=== PATIENT | female | born 1965 | race Caucasian/White ===

== ENCOUNTER → 2018-01-27 14:25 | Outpatient (CLI) | payer OTHER, SELFPAY ==
--- NOTE | 2018-01-27 14:31 | CT_ITS ---
STUDY: CT ABDOMEN AND PELVIS WITHOUT CONTRAST REASON FOR EXAM: Female, 53 years old. Hematuria x2 weeks. Left KS. RADIATION DOSAGE (If Supplied By Facility): CTDIvol = ( 14.00 ) mGy, DLP = ( 671.67 ) mGycm TECHNIQUE: Transaxial images were obtained from the dome of the diaphragm to the symphysis pubis without oral contrast, and without intravenous contrast. Sagittal and coronal images were reconstructed. Individualized dose optimization techniques were used for this CT. COMPARISON: None available. FINDINGS: CT abdomen without IV contrast. The visualized lung bases show no finding of active focal pulmonary consolidation with air bronchograms or pleural effusion with minimal groundglass and thin linear interstitial markings are noted lingula suggesting minimal subsegmental atelectasis/scarring. Visualized lower heart size appears within normal limits. Normal liver. Small size contracted appearing gallbladder noted. No extrahepatic biliary ductal dilatation identified. Visualized portal vein does not appear grossly dilated. Normal spleen. Normal pancreas. Normal bilateral adrenal glands. Right kidney shows mid collecting system rounds the margin of high attenuation calculus approximately 0.34 cm in diameter, nonobstructive appearing. Nonobstructive left renal mid collecting system calculus is approximately 0.59 x 0.53 cm posteriorly. In addition, mild hydronephrosis and hydroureter is seen with left mid to distal ureteral stranding and distal ureter calculus or calculi, measuring approximately 0.72 x 0.56 cm image #[id number] axials. Normal visualized partially collapsed stomach. Normal small intestine. Normal colon. The appendix is visualized and appears normal without thickening. Normal abdominal aorta. Normal inferior vena cava. Normal retroperitoneum. Normal urinary bladder, moderately distended without large gross focal bulky lesion seen. Uterus and ovaries appear grossly within normal limits. No ventral/inguinal bowel herniation noted. Normal abdominal wall. Abnormal anterior paramedian pelvic subcutaneous tissues show varices connecting the common femoral veins bilaterally. Nonacute osseous structures. CT/Abdomen/Pelvis without Cont IMPRESSION: Mild left hydronephrosis and left hydroureter is seen with mid to distal ureteral stranding and distal ureter calculus or calculi approximately 0.72 x 0.56 cm. Bilateral nonobstructive nephrolithiasis as described. Limitations above. Electronically Signed: Yifan Pink, at 15:11 EDT Tel , Service support ,
== END ==
PROVIDERS: Family Provider Family Medicine; PCP Family Medicine; Visit Provider Family Medicine
DX: R31.9 Hematuria, unspecified (principal)
CPT/HCPCS: 74176

== ENCOUNTER → 2018-02-18 14:50 | Outpatient (CLI) | payer OTHER, SELFPAY ==
--- NOTE | 2018-02-18 14:53 | EKG12_ITS ---
Test Reason : PREOP Blood Pressure : / mmHG Vent. Rate : 072 BPM Atrial Rate : 072 BPM P-R Int : 160 ms QRS Dur : 084 ms QT Int : 390 ms P-R-T Axes : 069 072 054 degrees QTc Int : 427 ms Normal sinus rhythm Normal ECG When compared with ECG of 29-SEP-2001 11:05, No significant change was found Confirmed by JUAN RAMON MINAYA ([id number]), tape editor NIDHI COMBS ([id number]) on 02/18/2018 3:50:59 PM Referred By: STONEY Confirmed By:JUAN RAMON MINAYA
== END ==
PROVIDERS: Family Provider Family Medicine; PCP Family Medicine; Visit Provider Urology
DX: Z01.812 Encounter for preprocedural laboratory examination (principal)
CPT/HCPCS: 93005

== ENCOUNTER → 2018-02-19 11:23 | Outpatient (CLI) | payer OTHER, SELFPAY ==
--- NOTE | 2018-02-19 11:25 | RAD_ITS ---
STUDY: X-RAY - ABDOMEN/PELVIS REASON FOR EXAM: Female, 53 years old. History of kidney stones. TECHNIQUE: Two AP supine views of the abdomen and pelvis. COMPARISON: None. FINDINGS: Normal visualized lung bases. There is an abundance of fecal material throughout the colon. There is a 3 mm calculus overlying the lower pole consistent with the right kidney. Punctate calcifications are seen in the left kidney more prominent in the midportion. Normal soft tissue structures. Normal visualized osseous structures. RAD/Abdomen Single View IMPRESSION: Small bilateral intrarenal calculi. Electronically Signed: Hussain Jimenez MD at 12:39 EDT Tel [phone], Service support ,
== END ==
PROVIDERS: Family Provider Family Medicine; PCP Family Medicine; Visit Provider Urology
DX: N20.0 Calculus of kidney (principal)
CPT/HCPCS: 74018

== ENCOUNTER → 2018-02-19 18:57 | Outpatient (CLI) | payer OTHER, SELFPAY ==
[2018-03-02 20:07] LABS: Ca Oxalate, Dihydrate 30 % (.); Ca Oxalate, Monohydrate 55 % (.); Calcium Phosphate 15 % (.)
== END ==
PROVIDERS: Family Provider Family Medicine; PCP Family Medicine; Visit Provider Urology
DX: N20.0 Calculus of kidney (principal)
CPT/HCPCS: 82360

== ENCOUNTER → 2019-08-17 14:15 | Outpatient (CLI) | payer OTHER, SELFPAY ==
[2019-08-20 16:06] LABS: HPV Reflexed? NOT INDICATED
== END ==
PROVIDERS: Family Provider Family Medicine; PCP Family Medicine; Referring Provider Nurse Practitioner Adult Health; Visit Provider Nurse Practitioner Adult Health
DX: Z01.419 Encounter for gynecological examination (general) (routine) without abnormal findings (principal); N76.0 Acute vaginitis
CPT/HCPCS: 87081; 88175; G0145

== ENCOUNTER → 2020-11-10 12:10 | Outpatient (CLI) | payer OTHER, SELFPAY | PROVIDERS: PCP Family Medicine; Visit Provider Family Medicine | DX: Z00.00 Encounter for general adult medical examination without abnormal findings (principal) ==

== ENCOUNTER → 2023-03-25 | Outpatient (CLI) | payer BC, SELFPAY ==
[2023-03-25 10:13] LABS: Hematocrit 43.4 % (37-47); Hemoglobin 14.5 g/dL (12.0-15.0); Mean Corp Hgb Conc 33.4 g/dL (32-36); Mean Corpuscular Hgb 32.4 pg (27.0-32.0); Mean Corpuscular Volume 97.1 fL (81-99); Platelet Count 197 K/mm3 (150-450); RBC Distribution Width CV 13.9 % (11.6-14.6); RBC Distribution Width SD 49.6 fl (35.1-43.9); Red Blood Count 4.47 M/mm3 (4.2-5.4); White Blood Count 6.4 K/mm3 (4.4-11.0)
[2023-03-25 11:21] LABS: Anion Gap 6 (5-15); BUN 14 mg/dL (7-18); BUN/Creat Ratio 16.1 RATIO (10-20); Chloride 108 mmol/L (98-107); Cholesterol 223 mg/dL (200); Creatinine, Serum 0.87 mg/dL (0.55-1.02); EST Glomerular Filtration Rate 72 mL/min (>60); Est Glom Filt Rate - Afr Amer 87 mL/min (>60); Glucose 157 mg/dL (74-106); High Density Lipoprotein 37 mg/dL; Magnesium 2.4 mg/dL (1.6-2.6); Sodium Level 141 mmol/L (136-145); Thyroid Stim Hormone (TSH) 1.61 uIU/mL (0.358-3.74); Triglycerides 156 mg/dL; Very Low Density Lipoprotein 31 mg/dL (5-40)
== END | disposition home or self-care (01) ==
LOC: MFPLAB 09:26
PROVIDERS: PCP Family Medicine; Visit Provider Family Medicine
DX: G25.0 Essential tremor (principal); Z13.1 Encounter for screening for diabetes mellitus; Z13.220 Encounter for screening for lipoid disorders; Z13.29 Encounter for screening for other suspected endocrine disorder
CPT/HCPCS: 36415; 80048; 80061; 83735; 84443; 85027

== ENCOUNTER → 2023-07-09 | Outpatient (CLI) | payer BC, SELFPAY ==
[2023-07-09 17:53] LABS: International Normalized Ratio 1.5
== END | disposition home or self-care (01) ==
LOC: MFPLAB 16:57
PROVIDERS: PCP Family Medicine; Visit Provider Family Medicine
DX: I82.409 Acute embolism and thrombosis of unspecified deep veins of unspecified lower extremity (principal)
CPT/HCPCS: 36415; 85610

== ENCOUNTER → 2025-01-10 | Outpatient (CLI) | payer OTHER, SELFPAY ==
[2025-01-10 08:14] LABS: Mucous, Urine 0 SEEN /hpf (<or=2+)
[2025-01-10 10:51] LABS: Color, Urine Yellow (Yellow); Glucose, Dipstick 250 mg/dl (Normal); Ketone-Dipstick Negative (Negative); Leukocyte Esterase-Dipstick 25 /ul (Negative); Nitrite-Dipstick Negative (Negative); Occult Blood-Urine 10 /ul (Negative); Protein-Dipstick 15 mg/dl (Negative); Urine Bilirubin Dipstick Negative (Negative); Urine Clarity Clear (Clear); Urine Urobilinogen Normal (Normal)
[2025-01-10 11:23] LABS: Squamous Epithelial Cells - UA 5-10 SEEN /hpf (5-10)
[2025-01-10 11:25] LABS: Bacteria 3+ /hpf (None Seen); Red Blood Cells-Urine 0-5 SEEN /hpf (0-5); White Blood Cells 5-10 SEEN /hpf (0-5)
[2025-01-10 11:26] LABS: Hyaline Cast 0-5 SEEN /lpf (0-5)
[2025-01-10 11:37] LABS: Microalbumin,Random Urine < 12.0 mg/L (NO RANGE EST.); Microalbumin:Creatinine Ratio UNABLE TO CALCULATE mg/g CRE
[2025-01-10 12:16] LABS: ALB/GLOB Ratio 1.4 RATIO (0.9-2.4); AST(SGOT) 25 U/L (<=31); Alanine Aminotransfer ALT/SGPT 14 U/L (<=34); Albumin, Serum 4.2 g/dL (3.5-5.0); Alkaline Phosphatase 93 U/L (35-104); Anion Gap 11 (5-15); BUN 16 mg/dL (4-19); BUN/Creat Ratio 19.9 RATIO (10-20); Calcium,Total 9.5 mg/dL (7.6-11.0); Carbon Dioxide 27.1 mmol/L (21.0-32.0); Chloride 99 mmol/L (98-108); Creatinine, Serum 0.79 mg/dL (0.70-1.20); EST Glomerular Filtration Rate 87 (>60); Glucose 252 mg/dL (70-99); Potassium 4.1 mmol/L (3.3-5.1); Protein, Total 7.2 g/dL (5.9-8.4); Sodium Level 137 mmol/L (133-145)
[2025-01-10 12:52] LABS: Cholesterol 240 mg/dL (<=200); High Density Lipoprotein 40 mg/dL; Low Density Lipoprotein Calc. 139 mg/dL; Triglycerides 301 mg/dL; Very Low Density Lipoprotein 60 mg/dL (5-40); Vitamin D,25 Hydroxy 20.9 ng/mL (30-100); cholesterol:hdl ratio screen 5.94
== END | disposition home or self-care (01) ==
LOC: MFPLAB 08:09
PROVIDERS: PCP Family Medicine; Visit Provider Family Medicine
DX: I10 Essential (primary) hypertension (principal); Z13.29 Encounter for screening for other suspected endocrine disorder
CPT/HCPCS: 36415; 80053; 80061; 81001; 82043; 82306; 82570; 84443

== ENCOUNTER → 2025-09-13 | Outpatient (CLI) | payer OTHER, SELFPAY ==
--- OUTSIDE RECORDS SUMMARY | 2025-09-13 17:57 | XMS RPT_ITS | CCD ---
Author Organization [facility] Inform ion Partnership [facility] Care Team Providers Care Electronics Instructor Name Role Phone Tomy Heller Attending Unavailable Tomy Heller Primary Care Unavailable Pina BARRIENTOS, Dr. Huitron Primary Care Provider Dr. Tomy Heller MD Attending Provider Problems Problem Classification Problem Date Documented Da te Episodic/Chronic Essential hypertension (1 source) Essential (primary) hypertension; Translations: [Essential (primary) hypertension] Onset: 01-20-2025 Chronic Results Test Name Value Interpretation Reference Range Facility Albumin DL <= 20 mg/L (U) [M ass/Vol]Ordered By: Tomy Heller on 01-10-2025 Urine Random Microalbumin < 12.0 mg/L NO RANGE EST. [facility] Anion gap in Serum or Plasma Ordered By: Tomy Heller on 01-10-2025 Anion gap [Moles/Vol] 11 mmol/L -[address] [facility] BUN/creatinine ratioOrdered By: Tomy Heller on 01-10-2025 Urea nitrogen/Creatinine [Mass ratio] 19.9 mg/mg 08-22 [facility] Bilirubin Test strip Ql (U)O rdered By: Tomy Heller on 01-10-2025 Bilirubin Ql (U) Negative Negative [facility] Bilirubin, totalOrdered By: Tomy Heller on 01-10-2025 Bilirubin [Mass/Vol] 0.60 mg/dL 0.00-1.30 [facility] Calculated very low density lipoprotein (VLDL) cholesterol measurementOrdered By: Tomy Heller on 01-10-2025 VLDL Cholesterol 60 mg/dL High 5-40 [facility] Carbon dioxide, total [Moles /volume] in Central venous bloodOrdered By: Tomy Heller on 03-10-2025 CO2 [Moles/Vol] 27.1 mmol/L 21.0-32.0 [facility] Chloride assayOrdered By: Shannan manolotomásher Heller on 01-10-2025 Chloride [Moles/Vol] 99 mmol/L 98-108 [facility] Comprehensive Metabolic Prof ilon 01-10-2025 Albumin [Mass/Vol] 4.2 g/dL Normal 3.5-5.0 [facility] Comment on above: Order Comment: Order Date: 01/04/25 Order Info: [id number] - CMP Order Date: 07/07/24 Order Info: [id number] - LIPID Order Info: [id number] - TSH Performed By: #### L 500.4050, [id number] #### [facility] [address] [place], [place], [address] Albumin/Globulin [Mass ratio] 1.4 {ratio} Normal 0.9-2.4 [facility] Comment on above: Order Comment: Order Date: 01/04/25 Order Info: [id number] - CMP Order Date: 07/07/24 Order Info: [id number] - LIPID Order Info: [id number] - TSH Performed By: #### L 500.4050, [id number] #### [facility] [address] [place], [place], [address] ALK PHOS 93 U/L Normal 35-104 [facility] Comment on above: Order Comment: Order Date: 01/04/25 Order Info: [id number] - CMP Order Date: 07/07/24 Order Info: [id number] - LIPID Order Info: [id number] - TSH Performed By: #### L 500.4050, [id number] #### [facility] [address] [place], [address] ALT [Catalytic activity/Vol] 14 U/L Normal <=34 [facility] Comment on above: Order Comment: Order Date: 01/04/25 Order Info: 0786-1 - CMP Order Date: 07/07/24 Order Info: [id number] - LIPID Order Info: 301-3 - TSH Performed By: #### L 500.4050, [id number] #### [facility] [address] [place], [address] AST [Catalytic activity/Vol] 25 U/L Normal <=31 [facility] Comment on above: Order Comment: Order Date: 01/04/25 Order Info: 07-1 - CMP Order Date: 07/07/24 Order Info: [id number] - LIPID Order Info: [id number] - TSH Performed By: #### L [id number], [id number] #### [facility] [address] [place], [address] Bilirubin [Mass/Vol] 0.60 mg/dL Normal 0.00-1.30 [facility] Comment on above: Order Comment: Order Date: 01/04/25 Order Info: [id number]- - CMP Order Date: 07/07/24 Order Info: [id number] - LIPID Order Info: 3 - TSH Performed By: #### L 500.4050, [id number] #### [facility] [address] [place], [place], [id number] BUN/CRE 19.9 RATIO Normal 10-20 [facility] Comment on above: Order Comment: Order Date: 01/04/25 Order Info: [id number]- - CMP Order Date: 07/07/24 Order Info: [id number] - LIPID Order Info: [id number] - TSH Performed By: #### L 500.4050, [id number] #### [facility] [address] [place], [address] Calcium [Mass/Vol] 9.5 mg/dL Normal 7.6-11.0 [facility] Comment on above: Order Comment: Order Date: 01/04/25 Order Info: 0786-1 - CMP Order Date: 07/07/24 Order Info: [id number] - LIPID Order Info: [id number] - TSH Performed By: #### L 500.4050, [id number] #### [facility] [address] [place], [address] Chloride [Moles/Vol] 99 mmol/L Normal 98-108 [facility] Comment on above: Order Comment: Order Date: 01/04/25 Order Info: 0786-1 - CMP Order Date: 07/07/24 Order Info: [id number] - LIPID Order Info: [id number] - TSH Performed By: #### L 500.4050, [id number] #### [facility] [address] [place], [address] CO2 [Moles/Vol] 27.1 mmol/L Normal 21.0-32.0 [facility] Comment on above: Order Comment: Order Date: 01/04/25 Order Info: 07-1 - CMP Order Date: 07/07/24 Order Info: [id number] - LIPID Order Info: [id number] - TSH Performed By: #### L [id number], [id number] #### [facility] [address] [place], [address] Creatinine [Mass/Vol] 0.79 mg/dL Normal 0.70-1.[address] [facility] Comment on above: Order Comment: Order Date: 01/04/25 Order Info: 0786-1 - CMP Order Date: 07/07/24 Order Info: [id number] - LIPID Order Info: [id number] - TSH Performed By: #### L 500.4050, [id number] #### [facility] [address] [place], [address] GAP 11 Normal 5-15 [facility] Comment on above: Order Comment: Order Date: 01/04/25 Order Info: 0786-1 - CMP Order Date: 07/07/24 Order Info: [id number] - LIPID Order Info: [id number] - TSH Performed By: #### L [id number], [id number] #### [facility] [address] [place], [address] GFR/1.73 sq M.predicted among non-blacks MDRD (S/P/Bld) [Vol rate/Area] 87 mL/min/{1.73_m2} Normal >60 [facility] Comment on above: Order Comment: Order Date: 01/04/25 Order Info: 0786-1 - CMP Order Date: 07/07/24 Order Info: [id number] - LIPID Order Info: [id number] - TSH Result Comment: mL/m in/1.73m2 CKD-EPI Creatinine Equation (2020) Performed By: #### L [id number], [id number] #### [facility] [address] [place], [place], [id number] Globulin (S) [Mass/Vol] 3.0 g/dL Normal 2.2-4.2 [facility] Comment on above: Order Comment: Order Date: 01/04/25 Order Info: 07- - CMP Order Date: 07/07/24 Order Info: [id number] - LIPID Order Info: [id number] - TSH Performed By: #### L 500.4050, [id number] #### [facility] [address] [place], [place], [id number] Glucose [Mass/Vol] 252 mg/dL High 70-99 [facility] Comment on above: Order Comment: Order Date: 01/04/25 Order Info: 0786-1 - CMP Order Date: 07/07/24 Order Info: [id number] - LIPID Order Info: [id number] - TSH Performed By: #### L 500.4050, [id number] #### [facility] [address] [place], [address] Potassium [Moles/Vol] 4.1 mmol/L Normal 3.3-5.[address] [facility] Comment on above: Order Comment: Order Date: 01/04/25 Order Info: 0786-1 - CMP Order Date: 07/07/24 Order Info: [id number] - LIPID Order Info: 3 - TSH Performed By: #### L 500.4050, [id number] #### [facility] [address] [place], [place], [address] Sodium [Moles/Vol] 137 mmol/L Normal 133-145 [facility] Comment on above: Order Comment: Order Date: 01/04/25 Order Info: 0786-1 - CMP Order Date: 07/07/24 Order Info: [id number] - LIPID Order Info: [id number] - TSH Performed By: #### L 500.4050, [id number] #### [facility] [address] [place], [address] T PROT 7.2 g/dL Normal 5.9-8.4 [facility] Comment on above: Order Comment: Order Date: 01/04/25 Order Info: 0786-1 - CMP Order Date: 07/07/24 Order Info: [id number] - LIPID Order Info: [id number] - TSH Performed By: #### L 500.4050, [id number] #### [facility] [address] [place], [address] Urea nitrogen [Mass/Vol] 16 mg/dL Normal 4-19 [facility] Comment on above: Order Comment: Order Date: 01/04/25 Order Info: 0786-1 - CMP Order Date: 07/07/24 Order Info: [id number] - LIPID Order Info: [id number] - TSH Performed By: #### L [id number], [id number] #### [facility] [address] [place], [address] Creatinine Unsp time (U) [Ma ss/Vol]Ordered By: Tomy Heller on 01-10-2025 Creatinine (U) [Mass/Vol] 124.00 mg/dL 28-217 [facility] Epithelial cells.squamous LM Ql (Urine sed)Ordered By: Tomy Heller on 01-10-2025 Epithelial cells.squamous LM.HPF (Urine sed) [#/Area] 5 /[HPF] 5-10 [facility] GFR/1.73 sq M.predicted wagner g non-blacks MDRD (S/P/Bld) [Vol rate/Area]Ordered By: Tomy Heller on 01-10-2025 Estimated GFR (MDRD) Non-Af Amer 87 >60 [facility] Comment on above: mL/min/1.73m2 CKD-EP I Creatinine Equation (2020) Glucose Ql (U)Ordered By: Shannan Heller on 01-10-2025 Glucose (U) [Mass/Vol] 250 mg/dL High Normal [facility] Hyaline casts LM.LPF (Urine sed) [#/Area]Ordered By: Tomy Heller on 01-10-2025 Hyaline casts LM Ql (Urine sed) 0-5 SEEN /lpf 0-5 [facility] Ketones Test strip Ql (U)Ord ered By: Tomy Heller on 01-10-2025 Ketones Ql (U) Negative Negative [facility] L506.1001on 01-10-2025 Vitamin D 25-OH 20.9 ng/mL Low 30-100 [facility] Comment on above: Order Comment: Order Date: 01/04/25 Order Info: 0786-1 - CMP Order Date: 07/07/24 Order Info: [id number] - LIPID Order Info: [id number] - TSH Result Comment: Renee min D Status Deficiency: <20 ng/mL (50nmol/L) Insufficiency: 20-30 ng/mL (50-75 nmol/L) Sufficiency: 30-100 ng/mL (75-250 nmol/L) Toxicity: >100 ng/mL (>250 nmol/L) Performed By: #### L 506.1001 #### [facility] [address] [place], [place], [id number] LDL calc ser/plasOrdered By: Tomy Heller on 01-10-2025 LDL Cholesterol, Calculated 139 mg/dL [facility] Comment on above: Ecnmllyxgo=078-547 m g/dL & Higher Lkzk=609 mg/dL or greater Laboratory - Chemistry and C hemistry - challengeOrdered By: Tomy Heller on 01-10-2025 AST [Catalytic activity/Vol] 25 U/L <32 [facility] Lipid Profileon 01-10-2025 CHOL:HDL 5.94 Normal [facility] Comment on above: Order Comment: Order Date: 01/04/25 Order Info: 0786-1 - CMP Order Date: 07/07/24 Order Info: [id number] - LIPID Order Info: [id number] - TSH Performed By: #### L 500.4100, L501.9520 #### [facility] [address] [place], [address] Cholesterol [Mass/Vol] 240 mg/dL High <=200 [facility] Comment on above: Order Comment: Order Date: 01/04/25 Order Info: 0786-1 - CMP Order Date: 07/07/24 Order Info: [id number] - LIPID Order Info: [id number] - TSH Result Comment: Chol esterol level, Desirable <200 mg/dL Borderline high cholesterol 200-239 mg/dL High cholesterol >=240 mg/dL Recommendations of the NCEP Adult Treatment Panel for the following risk-cutoff thresholds for the [place] population. Performed By: #### L 500.4100, L501.9520 #### [facility] [address] [place], [address] Cholesterol in HDL [Mass/Vol] 40 mg/dL Normal [facility] Comment on above: Order Comment: Order Date: 01/04/25 Order Info: 0786-1 - CMP Order Date: 07/07/24 Order Info: [id number] - LIPID Order Info: [id number] - TSH Result Comment: Marlen onal Cholesterol Education Program (NCEP) guidelines: <40 mg/dL: Low HDL-cholesterol (major risk factor for CHD) >= 60 mg/dL: High HDL-cholesterol (negative risk factor for CHD) HDL-cholesterol is affected by a number of factors, e.g. smoking, exercise, hormones, sex and age. Performed By: #### L 500.4100, L501.9520 #### [facility] [address] [place], [address] Cholesterol in LDL [Mass/Vol] 139 mg/dL Normal [facility] Comment on above: Order Comment: Order Date: 01/04/25 Order Info: 0786-1 - CMP Order Date: 07/07/24 Order Info: [id number] - LIPID Order Info: [id number] - TSH Result Comment: Bord rowsvj=836-462 mg/dL Higher Azas=581 mg/dL or greater Performed By: #### L 500.4100, L501.9520 #### [facility] [address] [place], [address] Cholesterol in VLDL [Mass/Vol] 60 mg/dL High 5-40 [facility] Comment on above: Order Comment: Order Date: 01/04/25 Order Info: 0786-1 - CMP Order Date: 07/07/24 Order Info: [id number] - LIPID Order Info: [id number] - TSH Performed By: #### L 500.4100, L501.9520 #### [facility] [address] [place], [address] Triglyceride [Mass/Vol] 301 mg/dL High [facility] Comment on above: Order Comment: Order Date: 01/04/25 Order Info: 0786-1 - CMP Order Date: 07/07/24 Order Info: [id number] - LIPID Order Info: [id number] - TSH Result Comment: The drugs N-Acetylcysteine and Metamizole may falsely depress this assay. Normal range: <150 mg/dL Borderline High: 150-199 mg/dL High: 200-499 mg/dL Very High: >500 mg/dL Performed By: #### L 500.4100, L501.9520 #### [facility] [address] [place], [address] Microalb:Creat Ratio,Random URon 01-10-2025 Creatinine [Mass/Vol] 124.00 mg/dL Normal 28-217 [facility] Comment on above: Order Comment: Order Date: 01/04/25 Order Info: [id number] - MIACRE Order Info: [id number] - MIALB Performed By: #### L 502.0250 #### [facility] [address] [place], [place], [address] MALB:CREAT UNABLE TO CALCULATE Normal [facility] Comment on above: Order Comment: Order Date: 01/04/25 Order Info: [id number] - MIACRE Order Info: [id number] - MIALB Performed By: #### L 502.0250 #### [facility] [address] [place], [place], [address] MICROALBUMIN,UR < 12.0 Normal NO RANGE EST. [facility] Comment on above: Order Comment: Order Date: 01/04/25 Order Info: [id number] - MIACRE Order Info: [id number] - MIALB Performed By: #### L 502.0250 #### [facility] [address] [place], [place], [address] Microalbumin/creat ratio urO rdered By: Tomy Heller on 01-10-2025 Urine Microalbumin/Creatinine Ratio UNABLE TO CALCULATE mg/g CRE [facility] Microscopic analysis of urin e for red blood cells (RBC)Ordered By: Tomy Heller on 01-10-2025 Urine RBC 0-5 SEEN /hpf 0-5 [facility] Mucus LM Ql (Urine sed)Order ed By: Tomy Heller on 01-10-2025 Mucus Ql (Urine sed) 0 SEEN /hpf [facility] Nitrite Test strip Ql (U)Ord ered By: Tomy Heller on 01-10-2025 Nitrite Ql (U) Negative Negative [facility] Potassium (Unsp spec) [Mass/ Vol]Ordered By: Tomy Heller on 01-10-2025 Potassium [Moles/Vol] 4.1 mmol/L 3.3-5.[address] [facility] Protein Test strip Ql (U)Ord ered By: Tomy Heller on 01-10-2025 Protein Ql (U) 15 mg/dl High Negative [facility] Screening total cholesterol/ high density lipoprotein (HDL) cholesterol ratioOrdered By: Tomy Heller on 01-10-2025 Cholesterol.total/Cholest patrice in HDL [Mass ratio] 5.94 {ratio} [facility] Serum creatinine measurement (mass/volume)Ordered By: Tomy Heller on 01-10-2025 Creatinine [Mass/Vol] 0.79 mg/dL 0.70-1.[address] [facility] Serum globulin measurementOr dered By: Tomy Heller on 01-10-2025 Globulin (S) [Mass/Vol] 3.0 g/dL 2.2-4.2 [facility] Serum glucose measurement (m ass/volume)Ordered By: Tomy Heller on 01-10-2025 Glucose [Mass/Vol] 252 mg/dL High 70-99 [facility] Serum or plasma alanine michaud otransferase (ALT) measurementOrdered By: Tomy Heller on 01-10-2025 ALT [Catalytic activity/Vol] 14 U/L <35 [facility] Serum or plasma albumin reji urement (mass/volume)Ordered By: Tomy Heller on 01-10-2025 Albumin [Mass/Vol] 4.2 g/dL 3.5-5.0 [facility] Serum or plasma albumin/glob ulin mass ratioOrdered By: Toym Heller on 01-10-2025 Albumin/Globulin [Mass ratio] 1.4 {ratio} 0.9-2.4 [facility] Serum or plasma alkaline que sphatase measurementOrdered By: Tomy Heller on 01-10-2025 ALP [Catalytic activity/Vol] 93 U/L 35-104 [facility] Serum or plasma calcium reji urement (mass/volume)Ordered By: Tomy Heller on 01-10-2025 Calcium [Mass/Vol] 9.5 mg/dL 7.6-11.0 [facility] Serum or plasma cholesterol in HDL measurement (mass/volume)Ordered By: Tomy Heller on 01-10-2025 Cholesterol in HDL [Mass/Vol] 40 mg/dL >40 [facility] Comment on above: National Cholesterol Education Program (NCEP) guidelines:<40 mg/dL: Low HDL-cholesterol (major risk factor for CHD)>= 60 mg/dL: High HDL-cholesterol (negative risk factor for CHD)HDL-cholesterol is affected by a number of factors, e.g. smoking, exercise, hormones, sex and age. Serum or plasma cholesterol measurement (mass/volume)Ordered By: Tomy Heller on 01-10-2025 Cholesterol [Mass/Vol] 240 mg/dL High <201 [facility] Comment on above: Cholesterol level, D esirable <200 mg/dLBorderline high cholesterol 200-239 mg/dLHigh cholesterol >=240 mg/dLRecommendations of the NCEP Adult Treatment Panel for the following risk-cutoff thresholds for the [place] population. Serum or plasma urea nitroge n measurement (mass/volume)Ordered By: Tomy Heller on 01-10-2025 Urea nitrogen [Mass/Vol] 16 mg/dL 4-19 [facility] Sodium levelOrdered By: Marino Heller on 01-10-2025 Sodium [Moles/Vol] 137 mmol/L 133-145 [facility] TSH DL <= 0.005 mIU/L QnOrde red By: Tomy Heller on 01-10-2025 Thyroid Stimulating Hormone (TSH) 1.610 uIU/mL 0.300-4.200 [facility] Thyroid Stim Hormone (TSH)on 01-10-2025 TSH 1.610 uIU/mL Normal 0.300-4.200 [facility] Comment on above: Order Comment: Order Date: 01/04/25 Order Info: [id number] - CMP Order Date: 07/07/24 Order Info: [id number] - LIPID Order Info: [id number] - TSH Performed By: #### L 500.4100, L501.9520 #### [facility] [address] [place], [place] [address]y[place]. [place], [place], [address] Total proteinOrdered By: Kiana Heller on 01-10-2025 Protein [Mass/Vol] 7.2 g/dL 5.9-8.4 [facility] Triglycerides measurementOrd ered By: Tomy Heller on 01-10-2025 Triglyceride [Mass/Vol] 301 mg/dL High <199 [facility] Comment on above: The drugs N-Acetylcy steine and Metamizole may falsely depress this assay. Normal range: <150 mg/dLBorderline High: 150-199 mg/dLHigh: 200-499 mg/dLVery High: >500 mg/dL Urinalysis, Completeon 01-10 CAST,HYALINE 0-5 SEEN Normal 0-5 [facility] Comment on above: Order Comment: Order Date: 01/04/25 Order Info: [address] [place] [address] STROKE BELT SANDER OPERATOR TO SPECIFY Performed By: #### L 500.4050, [id number] #### [facility] [address] [place], [address] BACTERIA 3+ /hpf Normal None Seen [facility] Comment on above: Order Comment: Order Date: 01/04/25 Order Info: [address] [place] [address] STROKE BELT SANDER OPERATOR TO SPECIFY Performed By: #### L 500.4050, [id number] #### [facility] [address] [place], [address] RBC 0-5 SEEN Normal 0-5 [facility] Comment on above: Order Comment: Order Date: 01/04/25 Order Info: [address] [place] [address] STROKE BELT SANDER OPERATOR TO SPECIFY Performed By: #### L 500.4050, [id number] #### [facility] [address] [place], [address] WBC 5-10 SEEN Normal 0-5 [facility] Comment on above: Order Comment: Order Date: 01/04/25 Order Info: [address] [place] [address] STROKE BELT SANDER OPERATOR TO SPECIFY Performed By: #### L 500.4050, [id number] #### [facility] [address] [place], [address] EPI,SQUAMOUS 5-10 SEEN Normal 5-10 [facility] Comment on above: Order Comment: Order Date: 01/04/25 Order Info: [address] [place] [address] STROKE BELT SANDER OPERATOR TO SPECIFY Performed By: #### L 500.4050, [id number] #### [facility] [address] [place], [address] Mucus Ql (Urine sed) 0 SEEN Normal [facility] Comment on above: Order Comment: Order Date: 01/04/25 Order Info: [id number] - [facility] STROKE BELT SANDER OPERATOR TO SPECIFY Performed By: #### L 500.4050, [id number] #### [facility] [address] [place], [address] Urine blood detectionOrdered By: Tomy Heller on 01-10-2025 Urine Occult Blood 10 /ul High Negative [facility] Urine clarityOrdered By: Kiana Heller on 01-10-2025 Clarity (U) Clear Clear [facility] Urine color determinationOrd ered By: Tomy Heller on 01-10-2025 Color (U) Yellow Yellow [facility] Urine leukocyte esterase det ection by dipstickOrdered By: Tomy Heller on 01-10-2025 Leukocyte esterase Test strip Ql (U) 25 /ul High Negative [facility] Urine pHOrdered By: Anika Heller on 01-10-2025 pH (U) 6.0 [pH] 5.0 - 8.0 [facility] Urine sediment bacteria coun t by microscopy (number/high power field)Ordered By: Tomy Heller on 01-10-2025 Bacteria LM.HPF (Urine sed) [#/Area] 3 /[HPF] None Seen [facility] Urine specific gravity measu rementOrdered By: Tomy Heller on 01-10-2025 Specific gravity (U) [Rel density] 1.020 1.002-1.030 [facility] Urobilinogen Ql (U)Ordered B y: Tomy Heller on 01-10-2025 Urine Urobilinogen Normal mg/dl Normal [facility] Vitamin D, 25-hydroxyOrdered By: Tomy Heller on 01-10-2025 Vitamin D 25-Hydroxy 20.9 ng/mL Low 30-100 [facility] Comment on above: Vitamin D StatusDefi ciency: <20 ng/mL (50nmol/L)Insufficiency: 20-30 ng/mL (50-75 nmol/L)Sufficiency: 30-100 ng/mL (75-250 nmol/L)Toxicity: >100 ng/mL (>250 nmol/L) White blood cell countOrdere d By: Tomy Heller on 01-10-2025 Urine WBC 5-10 SEEN /hpf 0-5 [facility] INR in Blood by Coagulation assayOrdered By: Wan Heller on 07-09-2023 INR Coag (Bld) [Relative time] 1.5 {INR} [facility] - CoagulationOrde red By: Wan Heller on 07-09-2023 PT Coag (PPP) [Time] 18.0 s 11.7-14.9 [facility] Basophil percentageOrdered B y: Wan Heller on 03-25-2023 Chloride [Moles/Vol] 108 mmol/L 98-107 [facility] Cholesterol [Mass/Vol] 223 mg/dL <200 [facility] Comment on above: <200 mg/dL Desirable 200-240 mg/dL Borderline >240 mg/dL High Risk Glucose [Mass/Vol] 157 mg/dL 74-106 [facility] Comment on above: Fasting Glucose resu lt greater than or equal to 126 mg/dL suggests DIABETES MELLITUS per A.D.A. criteria. Potassium [Moles/Vol] 4.0 mmol/L 3.5-5.[address] [facility] Sodium [Moles/Vol] 141 mmol/L 136-145 [facility] Triglyceride [Mass/Vol] 156 mg/dL <199 [facility] Comment on above: The drugs N-Acetylcy steine and Metamizole may falsely depress this assay.Serum Triglycerides Reference Interval Normal <150 mg/dL Borderline high 150 - 199 mg/dL High 200 - 499 mg/dL Very High > or = 500 mg/dL WBC (Bld) [#/Vol] 6.4 10*3/uL 4.4-11.0 [facility] Blood erythrocytes count (nu mber/volume)Ordered By: Wan Heller on 03-25-2023 RBC (Bld) [#/Vol] 4.47 10*6/uL 4.2-5.4 [facility] Blood hemoglobin measurement (mass/volume)Ordered By: Wan Heller on 03-25-2023 Hemoglobin (Bld) [Mass/Vol] 14.5 g/dL 12.0-15.0 [facility] Blood platelet mean volumeOr dered By: Wan Heller on 03-25-2023 Platelet mean volume (Bld) [Entitic vol] 9.0 fL 6.2-12.0 [facility] Determination of erythrocyte mean corpuscular volume (MCV)Ordered By: Wan Heller on 03-25-2023 MCV (RBC) [Entitic vol] 97.1 fL 81-99 [facility] Hematocrit Auto (Bld) [Volum e fraction]Ordered By: Wan Heller on 03-25-2023 Hematocrit (Bld) [Volume fraction] 43.4 % 37-47 [facility] - Chemistry and C hemistry - challengeOrdered By: Wan Heller on 03-25-2023 CO2 [Moles/Vol] 27.0 mmol/L 21.0-32.0 [facility] Magnesium [Mass/Vol] 2.4 mg/dL 1.6-2.6 [facility] Urea nitrogen/Creatinine [Mass ratio] 16.1 mg/mg 10-20 [facility] - Hematology and Cell countsOrdered By: Wan Heller on 03-25-2023 Erythrocyte distribution width (RBC) [Entitic vol] 49.6 fL 35.1-43.9 [facility] Erythrocyte distribution width (RBC) [Ratio] 13.9 % 11.6-14.6 [facility] MCH (RBC) [Entitic mass] 32.4 pg 27.0-32.0 [facility] MCHC Auto (RBC) [Mass/Vol]Or dered By: Wan Heller on 03-25-2023 MCHC (RBC) [Mass/Vol] 33.4 g/dL 32-[address] [facility] No Panel InformationOrdered By: Wan Heller on 03-25-2023 Estimated GFR (MDRD) Amer 87 mL/min >60 [facility] Comment on above: GFR Calc Estimated GFR (MDRD) Non-Af Amer 72 mL/min >60 [facility] Comment on above: Non- GFR Calc Thyroid Stimulating Hormone (TSH) 1.61 uIU/mL 0.358-3.74 [facility] Platelets bldOrdered By: Kiana Heller on 03-25-2023 Platelets (Bld) [#/Vol] 197 10*3/uL 150-450 [facility] Serum or plasma calcium reji urement (mass/volume)Ordered By: Wan Heller on 03-25-2023 Calcium [Mass/Vol] 9.0 mg/dL 8.5-10.1 [facility] Serum or plasma cholesterol in HDL measurement (mass/volume)Ordered By: Wan Heller on 03-25-2023 Cholesterol in HDL [Mass/Vol] 37 mg/dL >40 [facility] Comment on above: The drugs N-Acetylcy steine and Metamizole may falsely depress this assay. Reference Range HDL <40 mg/dL Low HDL Cholesterol HDL >or= 60 mg/dL High HDL Cholesterol Serum or plasma cholesterol in VLDL measurement (mass/volume)Ordered By: Wan Heller on 03-25-2023 Cholesterol in VLDL [Mass/Vol] 31 mg/dL 5-40 [facility] Serum or plasma creatinine m easurement (mass/volume)Ordered By: Wan Heller on 03-25-2023 Creatinine [Mass/Vol] 0.87 mg/dL 0.55-1.[address] [facility] Comment on above: The validity of the calculated GFR & GFRAA in patients over 70 years has not been determined. Clinical correlation is essential. Serum or plasma low density lipoprotein (LDL) cholesterol measurement (mass/volume)Ordered By: Wan Heller on 03-25-2023 Cholesterol in LDL [Mass/Vol] 155 mg/dL 0-130 [facility] Serum or plasma urea nitroge n measurement (mass/volume)Ordered By: Wan Heller on 03-25-2023 Urea nitrogen [Mass/Vol] 14 mg/dL 7-18 [facility] Thin prep Papanicolaou smear with manual screeningOrdered By: Wan Heller on 03-25-2023 Thin prep Papanicolaou smear with manual screening 6 5-15 [facility] -------- ALICE GREER ([id number]) 1965 F Date Time Provider Department 07/14/19 PHARMACIST 16 PHARWH During your visit today, we recorded the following information about you: Johanna Burch (Revenue Cycle Manager) 07/14/2019 11:39 AM Signed Called patient to find out who was managing their warfarin. No answer and did not leave a voicemail. Johanna Burch, Revenue Cycle Manager Johanna Burch (Revenue Cycle Manager) 07/19/2019 3:19 PM Signed Called patient to find out if they were interested in a home meter. No answer and was unable to leave a voicemail. Johanna Burch, Revenue Cycle Manager PATRIA MORA PHARMACIST 07/28/2019 10:25 AM Signed Called and left a voice message to determine warfarin management. Advised patient to call [facility] to discuss. Patria Mora, PharmD, BCPS [place] Pharmacist 08/11/2019 2:33 PM Signed Called patient to inquire if interested in home INR testing. Left VM to call [facility] at [phone] to discuss. [place] Pharmacist 08/17/2019 2:32 PM Signed Second call to patient to inquire if interested in pharmacy managed home INR testing program. Left VM to call [facility] at [phone] to discuss. Allergies As of Date: 07/14/2019 Noted Allergy Reaction AUGMENTIN (AMOXICILLIN-POT CLAVUL*09/18/2017 6 - Diarrhea 8 - GI Upset CECLOR (CEFACLOR) 01/02/2011 4 - Hives SULFA (SULFONAMIDE ANTIBIOTICS) 01/02/2011 4 - Hives Date Reviewed: 09/30/2017 Reviewed by: Maddie Jeffries RN - Fully Assessed Reason for Visit: Anticoagulation [8] Cmt: Home INR testing outreach Reason For Visit History Recorded Prescriptions as of 07/14/2019 Sig: NYSTATIN-TRIAMCINO ASHLEY 100,00* Apply 1 application to affect* WARFARIN 1 MG TABLET Take by mouth once daily. Wi* WARFARIN 3 MG TABLET Take by mouth once daily. Wi* ALBUTEROL SULFATE HFA 90 MCG/* Inhale 2 Puffs as instructed * FLUTICASONE PROPIONATE 50 MCG* Use 1 [place] in each nostril d* CETIRIZINE 10 MG TABLET Take 1 tablet by mouth once d* * ACETAMINOPHEN ER 650 MG TABLE* Take 1 tablet by mouth every * Problem List As Of Date 07/14/2019 Noted Resolved DVT of leg (deep venous thrombosis) ([facility]) [I82.* 08/07/2016 More... Factor V Leiden ([facility]) [D68.51] More... History of kidney stones [Z87.442] INVALID FOR* Mild intermittent asthma without complication [*INVALID FOR* Allergic rhinitis [J30.9] INVALID FOR* Encounter Status:Closed by JERAMY (FAC ENGINEER)JOHANNA on 07/14/19 [facility] PROGRESSon 01-29-2019 PROGRESS HNO ID: [id number] Author: Rebecca Saini Service: ? Author Type: Drawing Supervisor Type: Progress Notes Filed: 01/29/2019 8:57 AM Note Text: [facility] RN CORRECTIONS QUICKNOTE Provider Action/FYI: I spoke with Alice and she states she's seeing a different primary care doc. Dr. Merino removed as pcp. Patient identified by name and . Rebecca Saini CMA [facility] CNPTOUTREACHon 01-26-2019 CNPTOUTREACH Patient Outreach ([facility]) -------- ALICE GREER ([id number]) 1965 F Date Time Provider Department 01/26/19 REBECCA SAINI) [facility] During your visit today, we recorded the following information about you: Rebecca Saini CMA 01/29/2019 8:57 AM Signed [facility] C[facility] GAP REGISTRY DOCUMENTATION (OUTSIDE TEAMLET) Provider Action/FYI: Please file mammogram and advise if wanting anything additional. PSR Action/FYI: Due for physical appointment Patient identified by name and date of . Last BP/Labs: Blood Pressure: Last 3 Encounter BP Readings: Date: BP: 09/18/2017 132/84 12/24/2016 122/78 08/07/2016 130/80 Lipids: Cholesterol, Total (mg/dL) Date Value 12/24/2016 254 11/11/2015 186 HDL Cholesterol (mg/dL) Date Value 12/24/2016 43 11/11/2015 42 LDL Cholesterol (mg/dL) Date Value 12/24/2016 178 11/11/2015 112 Triglyceride (mg/dL) Date Value 12/24/2016 163 11/11/2015 160 HGB A1C: Lab Results Component Value Date HBA1C 5.7 12/24/2016 TSH: No results found for: TSH) ? Patient has the following care gap registry disease diagnosis:Asthma ? Patient has the following open care gaps: Health Maintenance Due: MAMMOGRAM due on 07/01/2013 - order pending COLORECTAL CANCER SCREENING,SEE MODIFIER due on 2017 INFLUENZA(1) due on 07/04/2018 ANNUAL PCP TEAM CHRONIC DISEASE VISIT due on 09/18/2018 PAP TESTING due on 09/24/2018 HPV TESTING due on 09/24/2018 ? Last office visit: 09/18/2017 ? Future office visit:Physical next available with pcp or vp ancillary POP Francisco CMA 01/29/2019 8:57 AM Signed [facility] RN CORRECTIONS QUICKNOTE Provider Action/FYI: Patient identified by name and . 1st attempt - Beta Dasht message sent. POP Francisco CMA 01/29/2019 8:57 AM Signed [facility] RN CORRECTIONS GRETELNOTE Provider Action/FYI: I spoke with Alice and she states she's seeing a different primary care doc. Dr. Merino removed as pcp. Patient identified by name and . Rebecca Saini CMA Allergies As of Date: 01/26/2019 Noted Allergy Reaction AUGMENTIN (AMOXICILLIN-POT CLAVUL*09/18/2017 6 - Diarrhea 8 - GI Upset CECLOR (CEFACLOR) 01/02/2011 4 - Hives SULFA (SULFONAMIDE ANTIBIOTICS) 01/02/2011 4 - Hives Date Reviewed: 09/30/2017 Reviewed by: Maddie Jeffries RN - Fully Assessed Reason for Visit: PHMA/Care Gap Outreach [3605] Primary Visit Diagnosis:Screenin g mammogram, encounter for [Z12.31] Order(s):RJ SCREENING [8049986] Order #: [id number] FUTURE Prescriptions as of 01/26/2019 Sig: NYSTATIN-TRIAMCINO LONE 100,00* Apply 1 application to affect* WARFARIN 1 MG TABLET Take by mouth once daily. Wi* WARFARIN 3 MG TABLET Take by mouth once daily. Wi* ALBUTEROL SULFATE HFA 90 MCG/* Inhale 2 Puffs as instructed * FLUTICASONE PROPIONATE 50 MCG* Use 1 [place] in each nostril d* CETIRIZINE 10 MG TABLET Take 1 tablet by mouth once d* * ACETAMINOPHEN ER 650 MG TABLE* Take 1 tablet by mouth every * Problem List As Of Date 01/26/2019 Noted Resolved DVT of leg (deep venous thrombosis) ([facility]) [I82.* 08/07/2016 More... Factor V Leiden ([facility]) [D68.51] More... History of kidney stones [Z87.442] INVALID FOR* Mild intermittent asthma without complication [*INVALID FOR* Allergic rhinitis [J30.9] INVALID FOR* Encounter Status:Closed by REBECCA SAINI CMA on 01/29/19 [facility] PROGRESSon 01-26-2019 PROGRESS HNO ID: [id number] Author: Rebecca Saini Service: ? Author Type: Drawing Supervisor Type: Progress Notes Filed: 01/29/2019 8:57 AM Note Text: [facility] RN CORRECTIONS QUICKNOTE Provider Action/FYI: Patient identified by name and . 1st attempt - Beta Dasht message sent. Rebecca Saini CMA [facility] PROGRESS HNO ID: [id number] Author: Rebecca Saini Service: ? Author Type: Drawing Supervisor Type: Progress Notes Filed: 01/29/2019 8:57 AM Note Text: [facility] CARE GAP REGISTRY DOCUMENTATION (OUTSIDE TEAMLET) Provider Action/FYI: Please file mammogram and advise if wanting anything additional. PSR Action/FYI: Due for physical appointment Patient identified by name and date of . Last BP/Labs: Blood Pressure: Last 3 Encounter BP Readings: Date: BP: 09/18/2017 132/84 12/24/2016 122/78 08/07/2016 130/80 Lipids: Cholesterol, Total (mg/dL) Date Value 12/24/2016 254 11/11/2015 186 HDL Cholesterol (mg/dL) Date Value 12/24/2016 43 11/11/2015 42 LDL Cholesterol (mg/dL) Date Value 12/24/2016 178 11/11/2015 112 Triglyceride (mg/dL) Date Value 12/24/2016 163 11/11/2015 160 HGB A1C: Lab Results Component Value Date HBA1C 5.7 12/24/2016 TSH: No results found for: TSH) ? Patient has the following care gap registry disease diagnosis:Asthma ? Patient has the following open care gaps: Health Maintenance Due: MAMMOGRAM due on 07/01/2013 - order pending COLORECTAL CANCER SCREENING,SEE MODIFIER due on 2017 INFLUENZA(1) due on 07/04/2018 ANNUAL PCP TEAM CHRONIC DISEASE VISIT due on 09/18/2018 PAP TESTING due on 09/24/2018 HPV TESTING due on 09/24/2018 ? Last office visit: 09/18/2017 ? Future office visit:Physical next available with pcp or vp ancillary Rebecca Saini CMA [facility] Encounters Encounter Date Encounter Type Care Provider Facility Start: 01-10-2025 End: 01-10-[address] Tomy Heller MD Work Phone: [facility] Work Phone: Start: 01-10-2025 End: 01-10-[address] T[facility] H[facility] Start: 01-10-2025 End: 01-10-2025 ambulatory Tomy Heller Facility:[facility] Start: 07-09-2023 End: 07-09-2023 ambulatory [facility] Work Phone: Start: 07-09-2023 End: 07-09-2023 Patient encounter procedure [facility] Start: 03-25-2023 End: 03-25-[address] [facility] Payers Date Payer Category Payer Private Health Insurance [id number] 2025 Self-pay [id number] Unknown ANTHEM [id number] Unknown [facility] [id number] Unknown [id number] Social History Date Type Detail [facility] Work Phone: Start: 1965 Sex Assigned At Female [facility] Work Phone: Start: 01-20-2025 Sex Female (finding) [facility] Evaluation note Note Date & Type Note Facility Evaluation note No assessment information availa ble [facility] Work Phone: Reason for referral (narrative) Note Date & Type Note Facility Reason for referral (narrative) No reason for referral information available [facility] Work Phone: Summary Purpose Family History No Family History Records FoundNo Family History Records Found Advance Directives No Advanced Directives Records FoundNo Advanced Directives Records Found Additional Source Comments INFORMATION SOURCE (unrecogn ized section and content) DATE CREATED AUTHOR 08/17/2019 [facility] DATE CREATED AUTHOR AUTHOR'S ORGANIZ ATION 01/22/2025 [facility] Care Teams (unrecognized sec tion and content) Team Status: Active Member Role Status Dates Dr. Wan Heller MD Family Provider Active Dr. Wan Heller MD Primary Care Provider Activ e Team Status: Inactive Member Role Status Dates Dr. Wan Heller MD Primary Care Provider, Atte nding Provider Active Team Status: Active Member Role Status Dates Dr. Tomy Heller MD Family Provider Active Dr. Tomy Heller MD Primary Care Provider Acti ve Team Status: Inactive Member Role Status Dates Dr. Tomy Heller MD Primary Care Provider Acti ve Start: January 10, 2025 End: January 10, 2025 Dr. Tomy Heller MD Attending Provider Active Start: January 10, 2025 End: January 10, 2025 Goals (unrecognized section and content) Goals may be documented in a n alternate sectionGoals may be documented in an alternate section FOR RECORDS PERTAINING TO PATIENTS WHO ARE OR HAVE BEEN ENROLLED IN A CHEMICAL DEPENDENCY/SUBSTANCEABUSE PROGRAM, SOME INFORMATION MAY BE OMITTED. This clinical summary was aggregated from multiple sources. Caution should be exercised in using it in the provision of clinical care. This summary normalizes information from multiple sources, and as a consequence, information in this document may materially change the coding, format and clinical context of patient data. In addition, data may be omitted in some cases. CLINICAL DECISIONS SHOULD BE BASED ON THE PRIMARY CLINICAL RECORDS. [facility]. provides no warranty or guarantee of the accuracy or completeness of information in this document.
[2025-09-18 14:07] LABS: HPV APTIMA, High Risk Negative (Negative)
== END | disposition home or self-care (01) ==
LOC: LABSPEC 17:54
PROVIDERS: PCP Family Medicine
DX: Z12.5 Encounter for screening for malignant neoplasm of prostate (principal)
CPT/HCPCS: 87624; 88175; G0145

== ENCOUNTER → 2025-10-07 | Outpatient (CLI) | payer OTHER, SELFPAY ==
--- NOTE | 2025-10-07 14:32 | BI_ITS ---
EXAM: SCRN MAMM (CAD)W/ABAD BILAT DATE: 10/07/2025 CLINICAL HISTORY: F, Age 60 y/o , SCREENING TECHNIQUE: Procedure Code: [id number] Modality: MG Procedure: SCRN MAMM (CAD)W/ABAD BILAT COMPARISON: Prior exam(s) dated 07/01/2012 FINDINGS: TISSUE DENSITY: The breasts are heterogeneously dense, which may obscure small masses. Bilateral Breast Mammographic Findings: Benign-appearing round microcalcifications are seen in both breasts. No suspicious masses, suspicious cluster of microcalcifications, architectural distortion or secondary sign of malignancy is identified in either breast. BI/SCRN MAMM (CAD)W/ABAD BILAT IMPRESSION: Benign screening mammogram OVERALL FINAL ASSESSMENT BI-RADS 2: BENIGN RECOMMENDATION: Routine annual follow-up in 1 Year Additional Recommendation none A letter with findings and recommendations will be mailed to the patient. Reading Location: [id number]
== END | disposition home or self-care (01) ==
LOC: OPBI 14:30
PROVIDERS: PCP Family Medicine; Referring Provider Family Medicine; Visit Provider Family Medicine
DX: Z12.31 Encounter for screening mammogram for malignant neoplasm of breast (principal)
CPT/HCPCS: 77063; 77067